=== PATIENT | male | born 1990 | race African-American/Black ===

== ENCOUNTER 2018-06-26 14:15 | Emergency (ER) | payer SELFPAY ==
[~2018-06-26] VITALS: Ht 180.3 cm; Wt 84.4 kg
[2018-06-26 14:20] VITALS: BP 143/61
[2018-06-26] MEDS ORDERED: AMOX500C PO (14:43)
[2018-06-26] MEDS ORDERED: ERYT1OIN6 OP (14:43)
[2018-06-26] MEDS ORDERED: IBUP-1060 PO (14:43)
--- NOTE | 2018-06-26 14:43 | PHYS DOC ---
Past Medical History Past Medical History: No Pertinent History Past Surgical History: No Surgical History Alcohol Use: Occasionally Drug Use: None Adult General Chief Complaint Chief Complaint: EYE PROBLEMS HPI HPI Patient is a 28 year old M who presents with a swollen L upper eye lid for the last 48 hours as well as a swollen tender upper gumline with sore tooth. Review of Systems Review of Systems Constitutional: Denies fever or chills [] Eyes: Denies change in visual acuity, redness, or eye pain [] HENT: Denies nasal congestion or sore throat [] Respiratory: Denies cough or shortness of breath [] Cardiovascular: No additional information not addressed in HPI [] GI: Denies abdominal pain, nausea, vomiting, bloody stools or diarrhea [] : Denies dysuria or hematuria [] Musculoskeletal: Denies back pain or joint pain [] Integument: Denies rash or skin lesions [] Neurologic: Denies headache, focal weakness or sensory changes [] Endocrine: Denies polyuria or polydipsia [] All other systems were reviewed and found to be within normal limits, except as documented in this note. Physical Exam Physical Exam Constitutional: Well developed, well nourished, no acute distress, non-toxic appearance. [] HENT: Normocephalic, atraumatic, bilateral external ears normal, oropharynx moist, no oral exudates, nose normal. [] Eyes: PERRLA, EOMI, conjunctiva normal, no discharge. [] Neck: Normal range of motion, no tenderness, supple, no stridor. [] Cardiovascular:Heart rate regular rhythm, no murmur [] Lungs & Thorax: Bilateral breath sounds clear to auscultation [] Abdomen: Bowel sounds normal, soft, no tenderness, no masses, no pulsatile masses. [] Skin: Warm, dry, no erythema, no rash. [] Back: No tenderness, no CVA tenderness. [] Extremities: No tenderness, no cyanosis, no clubbing, ROM intact, no edema. [] Neurologic: Alert and oriented X 3, normal motor function, normal sensory function, no focal deficits noted. [] Psychologic: Affect normal, judgement normal, mood normal. [] Current Patient Data Vital Signs Vital Signs Date Time Temp Pulse Resp B/P (MAP) Pulse Ox O2 Delivery O2 Flow Rate FiO2 1/19/19 14:20 97.8 81 19 143/61 (88) 100 Room Air 97.8 EKG EKG [] Radiology/Procedures Radiology/Procedures [] Course & Med Decision Making Course & Med Decision Making Pertinent Labs and Imaging studies reviewed. (See chart for details) [] Dragon Disclaimer Dragon Disclaimer This electronic medical record was generated, in whole or in part, using a voice recognition dictation system. Departure Departure Impression: Primary Impression: Stye Additional Impression: Dental caries Disposition: HOME, SELF-CARE Condition: STABLE Patient Instructions: Dental Caries, Sty Additional Instructions: Hold warm wet wash cloth to L eye several times daily to help the sty drain. Do not wear contacts until eye is completely healed. Follow up with eye doctor if needed. [facility] for us today can be reached at [phone] [place] teeth frequently, rinse with salt water or mouth wash after eating. Follow up with dentist as soon as possible. Scripts Ibuprofen (IBUPROFEN) 800 Mg Tablet 800 MG PO PRN Q6HRS PRN for INFLAMMATION for 7 Days, #20 TAB Prov: CYNDEE VERDUZCO 06/26/18 Amoxicillin (AMOXICILLIN) 500 Mg Capsule 2 CAP PO BID, #40 CAP Prov: CYNDEE VERDUZCO 06/26/18 Erythromycin Base (Erythromycin) 1 Gm Oint...g. 1 GM OP Q6HRS for 7 Days, MISC Prov: CYNDEE VERDUZCO 06/26/18 Problem Qualifiers CYNDEE VERDUZCO Jun 26, 2018 14:43
== END 2018-06-26 14:50 | disposition home or self-care (01) ==
LOC: ER 14:15
DX: K02.9 Dental caries, unspecified (principal); H00.014 Hordeolum externum left upper eyelid
CPT/HCPCS: 99283